=== PATIENT | male | born 1985 | race Caucasian/White ===

== ENCOUNTER 2016-09-14 02:08 | Emergency (ER) | payer SELFPAY ==
[~2016-09-14] VITALS: Ht 188 cm; Wt 100.2 kg
[2016-09-14 02:19] VITALS: BP 130/86
== END 2016-09-14 03:01 | disposition left against medical advice (07) ==
LOC: ED 02:57
DX: Z53.21 Procedure and treatment not carried out due to patient leaving prior to being seen by health care provider (principal)